=== PATIENT | male | born 1955 | race Caucasian/White ===

== ENCOUNTER 2016-08-19 10:00 | Inpatient (IN) | payer BC ==
[~2016-08-19] VITALS: Ht 175.3 cm; Wt 84.0 kg
--- NOTE | ~2016-08-19 | OR ---
[facility] 61 Y [address] ROOM: [place] [address] LOCATION: [facility] ADMIT DATE: 09/09/2016 OR/Procedure Report DISCHARGE DATE: FAMILY PHYSICIAN: JOESPH MARAVILLA MD ATTENDING PHYSICIAN: DAYANA CARL SURGEON: Dayana Carl MD SILK SCREENER: 1. GENE Dominguez. 2. Raúl Recinos CST/RN CVICU. 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 OPERATION: Complex right total hip arthroplasty with [place] [employer] robotic arm assistance and computer navigation. ANESTHESIA: Spinal anesthesia plus subcutaneous and periarticular local anesthesia (ropivacaine with epinephrine and Toradol). ESTIMATED BLOOD LOSS: Approximately 275 mL. DRAIN: None. SPECIMEN: None. COMPLICATIONS: None. IMPLANTS: 1. Melvi Trident titanium size 60 mm hemispherical uncemented acetabular shell with 1 dome hole cover and 4 screws. 2. Melvi X3 neutral acetabular polyethylene liner with 40 mm inner diameter. 3. Melvi Accolade II size 4 standard-offset uncemented femoral component. 4. A 40 mm Biolox femoral head with -2.5 mm neck adapter. 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 The patient has decided to proceed with hip replacement after having been thoroughly counseled regarding the associated risks, benefits, and limitations. We have specifically reviewed the risks and implications of infection, deep venous thrombosis, pulmonary PATIENT'S NAME: HARESH [facility] AGE: 61 Y [address] ROOM: [place] [address] LOCATION: [facility] ADMIT DATE: 09/09/2016 OR/Procedure Report DISCHARGE DATE: FAMILY PHYSICIAN: JOESPH MARAVILLA MD ATTENDING PHYSICIAN: DAYANA CARL embolism, mortality, neurovascular complications, blood transfusion (and associated potential for disease transmission or transfusion reaction), stiffness, instability, leg length discrepancy, mechanical deterioration of the components (due to wear and to loosening), and the potential need for revision. DESCRIPTION OF PROCEDURE: The patient was positioned in a lateral decubitus position with the right side up after administration of anesthesia and prophylactic antibiotics. An axillary roll was placed and the non-operative leg was well padded. The pelvis was locked perpendicularly to the floor on a pegboard. The right hip and entire operative extremity were prepped and draped with vigilant sterile technique. The patient's name as well as the intended operative side and procedure were confirmed with a verbal time-out involving myself, the circulating nurse, the scrub nurse, and the anesthesiologist. The right hip was approached through a standard posterolateral incision. The fascia eddi and the gluteus xavi fascia were sharply divided in line with the overlying skin incision. The sciatic nerve was identified and was vigilantly protected throughout the entire case. The short external rotators and posterior capsule were divided from their respective femoral insertions and tagged with four #1 Ethibond sutures for later repair. The hip was posteriorly dislocated with combined flexion, adduction, and internal rotation. The femoral neck osteotomy was performed with an oscillating saw. Inspection of the femoral head demonstrated severe flattening and a large peripheral osteophyte. There was a 3 cm diameter region of central full-thickness articular cartilage loss. There was a significant mushroom-shaped oblong deformity of the femoral head (consistent with Perthes disease). Circumferential acetabular exposure was obtained. Inspection of the acetabulum demonstrated significant dysplasia. There was an approximately 65-degree vertically inclined shallow acetabulum. There was a very large redundant acetabular labrum with significant degenerative tearing thereof. There were no loose bodies. There was a large effusion consisting of benign-appearing translucent synovial fluid. There was significant shortening of the femoral neck. Of note, the patient had a preoperative clinical leg length discrepancy of approximately 3 cm. Remnants of the acetabular labrum were sharply thoroughly excised. There was a [id number] subchondral cyst at the anterosuperior acetabulum. This was curetted and packed with cancellous autograft harvested from the resected femoral head. The acetabulum was sequentially progressively reamed up to 60 mm with hemispherical power reamers. It should be noted that reaming was performed using the [employer] robotic arm guidance system. The final acetabular shell was impacted into position in 20 degrees of anteversion and 45 degrees of inclination. A very good press-fit was obtained. Saran supplemental dome PATIENT'S NAME: JARROD HUTSON [facility] AGE: 61 Y [address] ROOM: [id number] [place], [place] [address] LOCATION: [facility] ADMIT DATE: 09/09/2016 OR/Procedure Report DISCHARGE DATE: FAMILY PHYSICIAN: JOESPH MARAVILLA MD ATTENDING PHYSICIAN: DAYANA CARL screws were placed (three of which obtained excellent purchase, and one of which obtained good purchase). It should be noted that the acetabular shell was impacted into position using the [employer] robotic arm guidance system. A neutral trial liner was inserted. Attention was next focused upon femoral preparation. The femoral canal initiator was utilized. No reaming was performed (except for with the canal finder). It should be noted that there was approximately 15 degrees of anteversion on the absentee-shawnee femoral neck. The femoral canal was subsequently sequentially progressively broached up to a size 4. The size 4 broach obtained excellent axial and rotational stability. Trial reductions with the above specified construct yielded acceptable stability and acceptable reproduction of leg length and offset. All trial components were removed. The final acetabular liner was inserted with excellent circumferential visualization of its locking mechanism to assure adequate deployment. The final femoral component was impacted into position. The femoral component achieved excellent axial and rotational stability. The trunnion of the femoral component was vigilantly protected prior to placement of the femoral head. The trunnion of the femoral component was thoroughly cleaned and dried prior to placement of the femoral head. The incision was thoroughly irrigated with bacteriostatic pulsatile saline lavage multiple times throughout the case. The entire joint space was thoroughly inspected and thoroughly irrigated to assure that there was no residual debris of any sort. A final reduction was then performed. After final reduction, the hip could be firmly externally rotated in full extension and zero degrees of abduction without anterior subluxation. In neutral rotation and zero degrees of abduction, the hip could be firmly flexed to 120 degrees without instability. At 90 degrees of flexion and zero degrees abduction, the hip could be internally rotated to 70 degrees before there was any hint of posterior subluxation. The posterior capsule and short external rotators were repaired through two drill holes in the posterior aspect of the greater trochanter. The fascia eddi and gluteus xavi fascia were closed with multiple simple and [id number]-[id number] interrupted # 1 Ethibond and #1 Vicryl sutures. Subcutaneous tissues were thoroughly re-irrigated with bacteriostatic pulsatile saline lavage. Subcutaneous tissues were re-approximated with simple buried interrupted #0 Vicryl sutures. The skin was closed with superficial buried interrupted 2-0 Vicryl sutures followed by a running subcuticular 3-0 Monocryl suture, followed by Octylseal, followed by Steri- Strips with benzoin, followed by an occlusive Mepilex dressing. PATIENT'S NAME: JARROD HUTSON [facility] AGE: 61 Y [address] ROOM: [address] [address] LOCATION: [facility] ADMIT DATE: 09/09/2016 OR/Procedure Report DISCHARGE DATE: FAMILY PHYSICIAN: JOESPH MARAVILLA MD ATTENDING PHYSICIAN: DAYANA CARL There were no intra-operative complications. It should be noted that an accessary oblique incision was made over the anterior iliac crest through which 3 partially threaded Steinmann pins were placed between the inner and outer tables of the iliac wing to anchor the robotic arm tracker guidance array. These 3 pins were removed intact at the conclusion of the case, and the incision was infiltrated subcutaneously with 0.25% Marcaine with epinephrine and irrigated prior to closure with simple deep interrupted 0 Vicryl, followed by superficial buried interrupted 2-0 Vicryl sutures and a running subcuticular 3-0 Monocryl suture, followed by Dermabond, followed by Steri-Strips with benzoin and an occlusive Mepilex dressing. It should be noted that the physician's programs assistant played an active, integral role throughout this entire operation. By providing expert retraction, they greatly facilitated and expedited safe and effective exposure of the proximal femur and acetabulum for preparation and implantation of the components. They were also actively involved in the patient's positioning, prepping and draping, as well as wound closure. MD JAYSON MILLER/kaushik /[id number] d: 09/09/16 1401 t: 09/14/16 0106, OPERATIVE SUMMARY
--- NOTE | ~2016-08-19 | DS ---
PATIENT'S NAME: SHABNAM HUTSON [facility] AGE: 61 Y [address] ROOM: [place] [address] LOCATION: [facility] ADMIT DATE: 09/09/2016 Discharge Summary DISCHARGE DATE: 09/11/2016 FAMILY PHYSICIAN: Adam Serna MD ATTENDING PHYSICIAN: Dayana Carl PRIMARY DIAGNOSIS: Osteoarthritis, right hip. SECONDARY DIAGNOSES: 1. Hypertension. 2. Gastroesophageal reflux disease. 3. History of Sife-Rlufi-Rvsqntm disease. 4. History of diverticulitis. PROCEDURE PERFORMED: Right hip total hip arthroplasty (KELLEN). HISTORY: The patient is a 61-year-old male, who presents with advanced right hip degenerative joint disease and associated severely compromised activities of daily living. The patient has decided to proceed with total right hip arthroplasty after having been thoroughly counseled regarding the risks, benefits, limitations, and alternatives. Please refer to the outpatient clinic notes and admission history and physical for this patient. HOSPITAL COURSE: The patient underwent a total right hip arthroplasty on 09/09/2016 without complications. Spinal anesthesia plus subcutaneous and periarticular local anesthesia was utilized. The patient received 24 hours of perioperative prophylactic antibiotics and remained hemodynamically stable, neurovascularly intact throughout the entire hospital course. The postoperative prophylactic deep venous thrombosis prophylaxis consisted of Xarelto, early mobilization and pneumatic compression devices. Daily physical therapy for gait training, transfer training, and reinforcement of hip dislocation precautions were received. The patient progressed well in physical therapy. On the date of discharge, 09/11/2016, the incision at the hip was healing well and showed no signs of infection. DISPOSITION: Home. DISCHARGE ACTIVITY: The patient is to bear weight as tolerated with strict hip dislocation precautions as instructed. There are to be no dressing changes. Dr. Carl is to be notified immediately if there is any increased pain, fevers, chills, erythema, or drainage. DISCHARGE MEDICATIONS: 1. Xarelto 10 mg 1 tablet p.o. daily for 12 days for postoperative DVT prophylaxis. PATIENT'S NAME: SHABNAM HUTSON [facility] AGE: 61 Y [address] ROOM: [place] [address] LOCATION: [facility] ADMIT DATE: 09/09/2016 Discharge Summary DISCHARGE DATE: 09/11/2016 FAMILY PHYSICIAN: Adam Serna MD ATTENDING PHYSICIAN: Dayana Carl 2. Hydromorphone 2 mg 1 to 2 tablets every 4 hours p.r.n. for pain. 3. Gabapentin 300 mg 1 tablet every night for 7 days for pain. 4. Celebrex 200 mg 1 tablet p.o. b.i.d. for 7 days for pain. He was then instructed to continue all his other pre-admission medications as instructed by his Internal Medicine doctor. FOLLOWUP: Followup appointment is to be on 09/16/[address] Carl's office for his initial postoperative evaluation at that time. MELISSA PARRA PA-C FOR DAYANA CARL MD SMW/modl /[id number] d: 09/16/16610 t: 10/05/16 2141, DISCHARGE SUMMARY
[2016-08-19] MEDS ORDERED: NEXIUM20 MG PO (16:42)
[2016-08-19] MEDS ORDERED: VALSARTAN-HCTZ1 EAC3 PO (16:43)
[2016-08-19] MEDS ORDERED: ADVIL200 MG PO (16:44)
--- NOTE | 2016-09-09 16:37 | NUR ---
Significant Event: PT ARRIVED ON FLOOR AT 1415 FROM PACU. POST OP VITALS CONT. 2ND HOURLY AT 1900. CSM INTACT. DILUADID GIVEN AT 1615. TYLENOL GIVEN AT 1700. ICE TO HIP. DRESSING INTACT/ PLEASE KEEP PILLOWS UNDER RT KNEE AT ALL TIMES PER DR CARL. ANTIBIOTIC GIVEN AT 1800. FAMILY IN THE ROOM Follow up:
--- NOTE | 2016-09-10 03:32 | NUR ---
Significant Event: Alert and oriented X3. Hypertensive, better, BP's now 130's/60's. Othwerise VSS. On RA. Mepilex dressing (X2) is CDI. CSM WNL. Pillow behind knee. Pt up to bedside and ambulated in room with 2 person assist, gait belt and walker. R) leg very tight. Voided X2 per urinal. IV's SL'd. Pain issues off/on throughout shift. Dilaudid 2mg PO given X6 last at 311. Dilaudid 0.2mg IVP given X5 last at 031. Toradol given 2 last at 311. Valium given X1 at 2343. Follow up:
--- NOTE | 2016-09-10 11:45 | NUR ---
Introduced self/role to patient. Lives in [place] with his Maureen. Denied any barriers to going home or at home. He plans to discharge tomorrow. 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 Added my name to his marker board.
--- NOTE | 2016-09-10 16:12 | NUR ---
Significant Event: Ambulates with SBA and walker. Mepilex dressing X2 C/D/I. Ice at all times. Dilauidid 2mg last at 1325 and Valium 5mg last at 1510. CSM WNL. Pillow behind R) knee, orders to remove but can have if wants. Attempted to remove pillow, within a few minutes patient C/O increasing pain, pillow replaced and patient states instant pain relief. Plans to dismiss home tomorrow. Follow up:
--- NOTE | 2016-09-11 06:36 | NUR ---
Significant Event: Alert and oriented X3. Vital signs stable. Dressing sites to R) hip is CDI. CSM WNL. IV's saline locked. Toradol, Dilaudid, Valium and Tylenol given for pain. Up with SBA, gait belt and walker. Follow up: Discharge home today.
[2016-09-11] MEDS ORDERED: TYLENOL EXTRA500 MG PO (13:39)
[2016-09-11] MEDS ORDERED: NEURONTIN300 MG PO (13:41)
[2016-09-11] MEDS ORDERED: COLACE100 MG PO (13:41)
[2016-09-11] MEDS ORDERED: MIRALAX17 GM PO (13:42)
[2016-09-11] MEDS ORDERED: XARELTO10 MG PO (13:43)
[2016-09-11] MEDS ORDERED: VALIUM5 MG PO (13:45)
[2016-09-11] MEDS ORDERED: DILAUDID 2MG(HYD2 MG PO (13:47)
--- NOTE | 2016-09-11 16:01 | NUR ---
PT AND HIS GIVEN DISCHARGE INSTRUCTIONS. BOTH VOICE UNDERSTADNING. MEDICATIONS AND DRESSING CARES REIVIEWED WITH BOTH PT AND HIS . PT ESCORTED TO THE FRONT DOOR BY TRANPORT STAFF. AT PT'S SIDE.
== END 2016-09-11 15:15 | disposition disaster alternative care site (69) | DRG 470 ==
LOC: G3N 09-09 06:19
PROVIDERS: ADMIT Orthopaedic Surgery
PROC: 8E0W0CZ Robotic Assisted Procedure of Trunk Region, Open Approach (ICD-10-PCS; principal; 2016-09-09)
PROC: 0SR902A Replacement of Right Hip Joint with Metal on Polyethylene Synthetic Substitute, Uncemented, Open Approach (ICD-10-PCS; principal; 2016-09-09)
DX: M16.11 Unilateral primary osteoarthritis, right hip (principal); I10 Essential (primary) hypertension; K21.9 Gastro-esophageal reflux disease without esophagitis; Q65.89 Other specified congenital deformities of hip; Z87.39 Personal history of other diseases of the musculoskeletal system and connective tissue
CPT/HCPCS: C1713; C1776; J1100; J1170; J1885; J2001; J2250; J2405; J2795; J3010; J7030

== ENCOUNTER → 2016-08-21 | Outpatient (CLI) | payer BC ==
[~2016-08-21] MED LIST: ADVIL200 MG PO; COLACE100 MG PO; DILAUDID 2MG(HYD2 MG PO; MIRALAX17 GM PO; NEURONTIN300 MG PO; NEXIUM20 MG PO; TYLENOL EXTRA500 MG PO; VALIUM5 MG PO; VALSARTAN-HCTZ1 EAC3 PO; XARELTO10 MG PO
== END | disposition disaster alternative care site (69) ==
LOC: GRAD 09:47 → GNJRC 11:00
DX: Z01.812 Encounter for preprocedural laboratory examination (principal); M25.551 Pain in right hip; M16.11 Unilateral primary osteoarthritis, right hip